=== PATIENT | male | born 1955 | race Two or more races ===

== ENCOUNTER 2019-10-21 08:49 | Day surgery (SDC) | payer OTHER ==
[~2019-10-21 08:49] MED LIST: KETOROLAC TROMETHAMINE 0.45% 4 DROP/0.4 ML DROPERETTE OS PRN
[2019-10-21] MEDS: TETRACAINE HCL 0.5% OPH SOLN 4 ML OS PRN ×4 (09:15→09:44)
[2019-10-21] MEDS: TROPICAMIDE 1% OPH SOLN 15 ML OS PRN ×3 (09:15→09:35)
[2019-10-21] MEDS: BESIFLOXACIN HCL 0.6% OPH SUSP 5 ML BOTTLE OS PRN ×4 (09:16→10:03)
[2019-10-21] MEDS: CYCLOPENTOLATE 0.2%/PHENYLEPHRINE 1% OPH SOLN 2 ML OS PRN ×3 (09:16→09:35)
[2019-10-21] MEDS ORDERED: MIDAZOLAM 2 MG/2 ML INJ ONE (09:30)
[2019-10-21] MEDS ORDERED: FENTANYL CITRATE INJ/PF 100 MCG/2 ML AMPUL ONE (09:31)
[2019-10-21] MEDS: CHONDR SU A NA/HYALUR INTRAOC KIT (SURGICARE) ONE ×2 (09:53)
[2019-10-21] MEDS: LIDOCAINE 1% INJ-PF (10 MG/ML) 30 ML SDV ONE ×2 (09:53)
[2019-10-21] MEDS: EPINEPHRINE INJ/PF 1 MG/1 ML AMPULE ONE ×2 (09:53)
[2019-10-21] MEDS: DORZOLAMIDE HCL 2%/TIMOLOL MALEAT 0.5% OPH SOLN 10 ML OS PRN ×2 (10:03)
[2019-10-21] MEDS: TOBRAMYCIN SULFATE/DEXAMETH OPH OINTMENT 3.5 GM ONE ×2 (10:03)
== END 2019-10-21 10:39 | disposition home or self-care (01) ==
LOC: SC 08:49
PROVIDERS: ATTEND Ophthalmology
DX: Z79.4 Long term (current) use of insulin (principal); F17.210 Nicotine dependence, cigarettes, uncomplicated; H25.12 Age-related nuclear cataract, left eye; E11.9 Type 2 diabetes mellitus without complications; E78.00 Pure hypercholesterolemia, unspecified; I10 Essential (primary) hypertension; Z79.84 Long term (current) use of oral hypoglycemic drugs
CPT/HCPCS: 66984; 82962; V2632; J2250; J3490 ×4; J0171; J3010; 142